=== PATIENT | female | born 2000 | race Caucasian/White ===

== ENCOUNTER 2024-01-21 15:14 | Emergency (ER) | payer SELFPAY ==
--- NOTE | 2024-01-21 15:30 | XRR_ITS ---
PROCEDURE INFORMATION: Exam: XR Right Ankle Exam date and time: 01/21/2024 3:43 PM Age: 23 years old Clinical indication: Injury or trauma; Fall; Blunt trauma; Ankle; Right TECHNIQUE: Imaging protocol: Radiologic exam of the right ankle. Views: 3 or more views. COMPARISON: No relevant prior studies available. FINDINGS: Bones/joints: Comminuted transverse fracture of the right medial malleolus with 7 mm of lateral displacement and 4 mm of widening of the distal fracture fragment. Longitudinal fracture of the posterior malleolus with 4.5 mm of displacement. Comminuted fracture of the distal diaphysis of the right fibula with 14 degrees of lateral displacement of the distal fracture fragment and up to 5 mm of posterior displacement of a large butterfly fragment. Widening of the medial and anterior ankle joint space with posterior subluxation of the talus suspicious for ligamentous injury. Concave deformity of the posterior aspect of the talar dome, likely secondary to impaction from the tibia. Normal bone mineralization. Soft tissues: Diffuse, moderate soft tissue swelling at the distal right lower leg and around the right ankle. No radiopaque foreign body. XR/XR ankle RT min 3V* [id number] IMPRESSION: 1. Comminuted transverse fracture of the right medial malleolus with 7 mm of lateral displacement and 4 mm of widening of the distal fracture fragment. 2. Longitudinal fracture of the posterior malleolus with 4.5 mm of displacement. 3. Comminuted fracture of the distal diaphysis of the right fibula with 14 degrees of lateral displacement of the distal fracture fragment and up to 5 mm of posterior displacement of a large butterfly fragment. 4. Widening of the medial and anterior ankle joint space with posterior subluxation of the talus suspicious for ligamentous injury. 5. Concave deformity of the posterior aspect of the talar dome, likely secondary to impaction from the tibia. 6. Diffuse, moderate soft tissue swelling at the distal right lower leg and around the right ankle.
[2024-01-21 15:34] VITALS: BP 152/92; PULSE 79; RESP 18; TEMP 37; O2SAT 98; BMI 35.2
--- NOTE | 2024-01-21 15:41 | XRR_ITS ---
PROCEDURE INFORMATION: Exam: XR Right Foot Exam date and time: 01/21/2024 3:58 PM Age: 23 years old Clinical indication: Injury or trauma; Fall; Blunt trauma; Foot; Right TECHNIQUE: Imaging protocol: Radiologic exam of the right foot. Views: 3 or more views. COMPARISON: CR (LOW EXM, ) 01/21/2024 3:43 PM FINDINGS: Bones/joints: Widening of the medial and anterior ankle joint space with impaction of the posterior aspect of the tibia on the posterior talar dome. Comminuted and displaced fractures of the right medial and posterior malleoli on the distal diaphysis of the right fibula. Accessory ossicle adjacent to the cuboid bone. Soft tissues: Diffuse, mild to moderate soft tissue swelling. No radiopaque foreign body. XR/XR foot RT min 3V* [id number] IMPRESSION: 1. Widening of the medial and anterior ankle joint space with impaction of the posterior aspect of the tibia on the posterior talar dome. 2. Comminuted and displaced fractures of the right medial and posterior malleoli on the distal diaphysis of the right fibula. Please refer to dictation for right ankle radiographs dated 01/21/2024 for full description of these findings. 3. Diffuse, mild to moderate soft tissue swelling.
--- NOTE | 2024-01-21 17:37 | ED_ITS ---
Documented by User: SALVADOR Sharma 01/21/24 19:33 HPI - Extremity Problem General: Chief complaint: Extremity Injury, Lower Stated complaint: Fall/Ankle Injury Time Seen by Provider: 01/21/24 15:29 History of Present Illness: 23-year-old female was going down some s teps last night and rolled her ankle. Patient continues to have pain and discomfort to the right ankle noticeable swelling and slight deformity is noted. Pulses are intact. Skin is warm and dry. Cap refill is intact. Patient denies any chronic medical problems. Related Data Previous Rx's Medication Instructions Recorded hydrocodone 5 mg-acetaminophen 325 1 tab PO Q6H PRN pain #14 tabs 01/21/24 mg tablet Allergies Allergy/AdvReac Type Severity Reaction Status Date / Time No Known Allergies Allergy Verified 01/21/24 15:34 Review of Systems General: Reports: 10 or more systems reviewed and unremarkable except in HPI and below Musc: Reports: extremity pain, extremity swelling and joint pain (Right ankle) Physical Exam Const: COMMON NORMALS: alert HENMT: COMMON NORMALS: normocephalic HEAD & SCALP: normocephalic Neck/C-Spine: COMMON NORMALS: full ROM CERVICAL SPINE: Yes cervical ROM normal and No Cervical spine tenderness Resp: COMMON NORMALS: normal respiratory effort Cardio: COMMON NORMALS: regular rate and regular rhythm RATE: regular rate RHYTHM: regular rhythm GI: COMMON NORMALS: non-tender Back/Pelvis: COMMON NORMALS: thoracic and lumbar spine normal to inspection Extremity: RIGHT LOWER EXTREMITY: Yes foot & digits (Significant swelling to the right ankle ) Right ankle: Yes ROM (Decreased range of motion due to pain and swelling) and Yes neurovascular exam Neuro: SENSORIUM/ORIENTATION: Yes alert Skin: COMMON NORMALS: turgor normal GENERAL SKIN EXAM: turgor normal Course Vital Signs: Vital signs: Vital Signs Temperature 98.6 F 01/21/24 15:34 Pulse Rate 85 01/21/24 19:34 Respiratory Rate 18 01/21/24 19:34 Blood Pressure 146/77 01/21/24 19:34 Pulse Oximetry 98 01/21/24 19:34 Oxygen Delivery Me thod Room Air 01/21/24 19:34 MDM - Extremity (Nontraumatic) Medical Decision Making Patient comes in today for complaints of injury to the right ankle. On exam there is significant swelling with some mild deformity noted to the right ankle. Cap refill and pulses are intact. Differential diagnosis includes fracture, sprain, dislocation. X-ray of the ankle notes a distal shaft fracture of the fibula and then medial malleus fracture of the tibia. Reviewed x-ray with Dr. Edward, sizing end bander on-call, he recommended reduction and splinting and following up outpatient. Reviewed this with Dr. Lopez who assumed care of patient for reduction and splinting of the fracture. Patient was given information for physician Mu Kelly, orthopedist in [place] for follow-up with ankle fracture. Patient and family member both reported understanding. Lab Data Radiology Impressions Foot X-Ray 01/21/24 15:41 IMPRESSION: 1. Widening of the medial and anterior ankle joint space with impaction of the posterior aspect of the tibia on the posterior talar dome. 2. Comminuted and displaced fractures of the right medial and posterior malleoli on the distal diaphysis of the right fibula. Please refer to dictation for right ankle radiographs dated 01/21/2024 for full description of these findings. 3. Diffuse, mild to moderate soft tissue swelling. Ankle CT 01/21/24 17:41 IMPRESSION: 1. Acute displaced Maisonneuve type fracture with tibiotalar subluxation (Servin C PER stage IV). Ankle X-Ray 01/21/24 19:12 IMPRESSION: 1. Interval reduction and splinting. All radiology interpretation(s) finalized by discharge Discharge Plan Discharge Patient Disposition: Home Clinical Impression: Ankle fracture, right Qualifiers: Encounter type: initial encounter Fracture type: closed Qualified Code(s): S82.891A - Other fracture of right lower leg, initial encounter for closed fracture Condition: Stable Prescriptions: New hydrocodone-acetaminophen 5-325 mg tablet 1 tab PO Q6H PRN (Reason: pain) Qty: 14 0RF Discharge Orders: Discharge ED (Routine); Ordered 01/21/24 Ordered By: Reece Lopez Discharge Diet: Advance as tolerated Discharge Activity: Limit activity as instructed and Use walker/crutches as instructed Patient Instructions: Ankle Fracture (ED), Opioid Safety Coding Level of Care Code ED [employer] [facility] Documented by User: Reece Lopez MD 01/21/24 19:52 HPI - Extremity Problem General: Chief complaint: Extremity Injury, Lower Stated complaint: Fall/Ankle Injury Time Seen by Provider: 01/21/24 15:29 Related Data Previous Rx's Medication Instructions Recorded hydrocodone 5 mg-acetaminophen 325 1 tab PO Q6H PRN pain #14 tabs 01/21/24 mg tablet Allergies Allergy/AdvReac Type Severity Reaction Status Date / Time No Known Allergies Allergy Verified 01/21/24 15:34 Procedures Orthopedic Fracture Reduction Fracture #1: Time Out Performed: Yes Side: right Fracture Reduction Location: other (ankle) Analgesia: procedural sedation Technique: direct manipulation Post Reduction X-rays Demonstrate: anatomical reduction Post-reduction neuro exam: intact Post-reduction vascular exam: intact Splint Applied: Yes Patient Tolerated Procedure: well Orthopedic Splinting/Casting Injury #1: Side: right Lower Extremity Injury Location: ankle Lower Extremity Immobilizer: stirrup splint Other Orthopedic Equipment: crutches Procedural Sedation Indication: fracture/dislocation reduction ASA Class: I Time of Last PO Intake: 15:00 Preparation: classroom monitor applied and pulse oximeter IV Propofol dose (mg): 220 Patient Tolerated Procedure: well Complications: none Course Vital Signs: Vital signs: Vital Signs Temperature 98.6 F 01/21/24 15:34 Pulse Rate 85 01/21/24 19:34 Respiratory Rate 18 01/21/24 19:34 Blood Pressure 146/77 01/21/24 19:34 Pulse Oximetry 98 01/21/24 19:34 Oxygen Delivery Me thod Room Air 01/21/24 19:34 MDM - Extremity (Nontraumatic) Medical Decision Making Patient comes in today for complaints of injury to the right ankle. On exam there is significant swelling with some mild deformity noted to the right ankle. Cap refill and pulses are intact. Differential diagnosis includes fracture, sprain, dislocation. X-ray of the ankle notes a distal shaft fracture of the fibula and then medial malleus fracture of the tibia. Reviewed x-ray with Dr. Edward, sizing end bander on-call, he recommended reduction and splinting and following up outpatient. Reviewed this with Dr. Lopez who assumed care of patient for reduction and splinting of the fracture. Patient was given information for physician Mu Kelly, orthopedist in [place] for follow-up with ankle fracture. Patient and family member both reported understanding. Patient was sedated and reduced and splinted patient tolerated it well she is to use crutches follow-up in [place] return if worsening. Lab Data Radiology Impressions Foot X-Ray 01/21/24 15:41 IMPRESSION: 1. Widening of the medial and anterior ankle joint space with impaction of the posterior aspect of the tibia on the posterior talar dome. 2. Comminuted and displaced fractures of the right medial and posterior malleoli on the distal diaphysis of the right fibula. Please refer to dictation for right ankle radiographs dated 01/21/2024 for full description of these findings. 3. Diffuse, mild to moderate soft tissue swelling. Ankle CT 01/21/24 17:41 IMPRESSION: 1. Acute displaced Maisonneuve type fracture with tibiotalar subluxation (Servin C PER stage IV). Ankle X-Ray 01/21/24 19:12 IMPRESSION: 1. Interval reduction and splinting. Discharge Plan Discharge Patient Disposition: Home Clinical Impression: Ankle fracture, right Qualifiers: Encounter type: initial encounter Fracture type: closed Qualified Code(s): S82.891A - Other fracture of right lower leg, initial encounter for closed fracture Condition: Stable Prescriptions: New hydrocodone-acetaminophen 5-325 mg tablet 1 tab PO Q6H PRN (Reason: pain) Qty: 14 0RF Discharge Orders: Discharge ED (Routine); Ordered 01/21/24 Ordered By: Reece Lopez Discharge Diet: Advance as tolerated Discharge Activity: Limit activity as instructed and Use walker/crutches as instructed Patient Instructions: Ankle Fracture (ED), Opioid Safety Coding Level of Care Code ED Electric[facility] Office for [facility]
--- NOTE | 2024-01-21 17:41 | CTR_ITS ---
PROCEDURE INFORMATION: Exam: CT Right Lower Extremity, Ankle Exam date and time: 01/21/2024 6:03 PM Age: 23 years old Clinical indication: Injury or trauma; Fall; Fracture, traumatic; Displaced; Ankle; Right; Not specified; Patient HX: Patient fell down stairs yesterday and C/O worsening pain and swelling with inability to bear weight. Complex fracture noted on xray. TECHNIQUE: Imaging protocol: CT of the right lower extremity without contrast was performed. Exam focused on the ankle. Radiation optimization: All CT scans at this facility use at least one of these dose optimization techniques: automated exposure control; mA and/or kV adjustment per patient size (includes targeted exams where dose is matched to clinical indication); or iterative reconstruction. COMPARISON: CR (LOW EXM, ) 01/21/2024 3:43 PM RADIATION DOSE METRICS: Total DLP (mGy-cm): 178.7 FINDINGS: Bones/joints: Acute displaced fractures of the distal fibular shaft, medial malleolus and posterior malleolus with tibiotalar subluxation (Servin C pronation external rotation stage IV). The fibular fracture is located approximately 7.5 cm above the tibiotalar articulation. Comminution is noted of the fibular fracture with a 2.8 cm craniocaudal butterfly fragment along the posterior aspect of the fracture. There is a smaller 14 mm craniocaudal fragment centrally (image 40 of series 7). There is approximately 5 mm posterolateral translation of the hindfoot with respect of the tibial plafond. There is widening of the syndesmosis with likely marcela disruption of the anterior distal tib fib syndesmotic ligament. Talus, subtalar articulations and calcaneus are intact. Soft tissues: Prominent soft tissue edema without discrete fluid collection or hematoma. Tendons are grossly intact. CT/CT ankle RT wo con* [id number] IMPRESSION: 1. Acute displaced Maisonneuve type fracture with tibiotalar subluxation (Servin C PER stage IV).
--- NOTE | 2024-01-21 19:12 | XRR_ITS ---
PROCEDURE INFORMATION: Exam: XR Right Ankle Exam date and time: 01/21/2024 7:16 PM Age: 23 years old Clinical indication: Other: Post reduction TECHNIQUE: Imaging protocol: Radiologic exam of the right ankle. Views: 1 or 2 views. COMPARISON: CT ankle RT wo con* [id number] 01/21/2024 6:03 PM FINDINGS: Bones/joints: Interval reduction and splinting. Soft tissues: Soft tissue edema. XR/XR ankle RT 2V [id number] IMPRESSION: 1. Interval reduction and splinting.
[2024-01-21 19:17] VITALS: RESP 18
[2024-01-21] MEDS: ondansetron 2 mg/ML SDV 2 mL 4 MG IVP (19:17)
[2024-01-21] MEDS: propofol 10 mg/mL SDV 20 mL 100 MG IVP (19:17)
[2024-01-21] MEDS: morphine 4 mg/mL SDV 1 mL IVP (19:17)
[2024-01-21 19:34] VITALS: BP 146/77; PULSE 85; RESP 18; O2SAT 98
[2024-01-21] MEDS: sodium chloride 0.9% (100 ml) 100 ML 200 ML (19:37)
[2024-01-21] MEDS: HYDROcodone-acetaminophen 5-325 mg Tablet 2 TAB PO (20:06)
[2024-01-21 20:07] VITALS: BP 146/77; PULSE 85; RESP 18; TEMP 37; O2SAT 98
== END 2024-01-21 20:09 | disposition home or self-care (01) ==
PROVIDERS: Emergency Provider Emergency Medicine
DX: S82.861A Displaced Maisonneuve's fracture of right leg, initial encounter for closed fracture (principal); X50.1XXA Overexertion from prolonged static or awkward postures, initial encounter
CPT/HCPCS: 27810; 73600; 73610; 73630; 73700; 96361; 96374; 96375; 99285; J2270; J2405; J2704